=== PATIENT | female | born 1970 | race Two or more races ===

== ENCOUNTER 2018-12-01 10:57 | Emergency (ER) | payer OTHER ==
[~2018-12-01] VITALS: Ht 152.4 cm; Wt 66.2 kg
--- NOTE | 2018-12-01 11:00 | NUR ---
PT BIBRA FROM WORK C/O DIZZINESS, TINGGLY SENSATION TO LIPS FINGERS AND TOES X 5 DAYS AND WORST SINCE LAST NIGHT. NO NOTED FACIAL DROOPING, SLURRING AND WEAKNESS UPON INITIAL ASSESSMENT. 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 BG 127 BIOMETRIC SCREENER. GOWNED AND PLACED ON MONITOR. VSS. AWAITING MD GASTON.
--- NOTE | 2018-12-01 11:15 | NUR ---
DR RASHEED AT BEDSIDE FOR EVAL.
[2018-12-01] MEDS ORDERED: ONDANSETRON HCL/PF 4 MG/2 ML VIAL ONE (11:33)
[2018-12-01] MEDS: IV NS 0.9% 1,000 ML BAG IV ONE (11:35)
--- NOTE | 2018-12-01 11:36 | NUR ---
PT REALLY NAUSEATED. DR RASHEED MADE AWARE. VERBAL ORDER FOR ZOFRAN 4MG IVP GIVEN. CARRIED OUT.
[2018-12-01 11:41] LABS: BASOPHILS % (AUTO) 0.2 % (0.0-2.0); CALCIUM, SERUM 8.8 mg/dL (8.5-10.1); CARBON DIOXIDE 28 mmol/L (21-32); CHLORIDE 107 mmol/L (98-107); CREATININE 0.6 mg/dL (0.6-1.3); EOSINOPHILS % (AUTO) 0.5 % (0.0-6.0); GLUCOSE 98 mg/dL (74-106); HEMATOCRIT 42 % (33-45); HEMOGLOBIN 14.2 g/dL (11.5-14.8); LYMPHOCYTES # (AUTO) 1.3 /CMM (0.8-4.8); MEAN CORPUSCULAR HGB CONC 34 g/dl (31.0-36.0); MEAN CORPUSCULAR VOLUME 90 fL (82-100); MONOCYTES # (AUTO) 0.4 /CMM (0.1-1.30); NEUTROPHILS # (AUTO) 5.1 /CMM (1.8-8.9); NEUTROPHILS % (AUTO) 74.3 % (43.0-81.0); PLATELET COUNT (AUTO) 212 /CMM (150-450); POTASSIUM 3.9 mmol/L (3.5-5.1); RED BLOOD CELL COUNT(AUTO) 4.67 MIL/uL (4.0-5.2); SODIUM SERUM 144 mmol/L (136-145); UREA NITROGEN, BLOOD 13 mg/dL (7-18); WHITE BLOOD COUNT (AUTO) 6.9 K/uL (4.3-11.0)
[2018-12-01 11:47] LABS: ALANINE AMINOTRANSFERASE 26 U/L (12-78); ALBUMIN 3.7 g/dL (3.4-5.0); ALKALINE PHOSPHATASE 74 U/L (46-116); ASPARTATE AMINOTRANSFERASE 17 U/L (15-37); BILIRUBIN,DIRECT 0.2 mg/dL (0.0-0.2); BILIRUBIN,TOTAL 1.1 mg/dL (0.2-1.0); TOTAL PROTEIN, SERUM 7.2 g/dL (6.4-8.2)
[2018-12-01] MEDS ORDERED: IOHEXOL-350 100 ML VIAL IV ONE (11:55)
[2018-12-01] MEDS ORDERED: CT SWABBABLE VALVE TRANS SET 1 EA INFUS.SET MC ONE (11:55)
[2018-12-01] MEDS ORDERED: IV NS 0.9% 250 ML IV ONE (11:55)
--- NOTE | 2018-12-01 12:08 | NUR ---
PT TO RADIOLOGY FOR HEAD, BRAIN AND CAROTID CT SCAN VIA [facility].
--- NOTE | 2018-12-01 13:19 | NUR ---
Patient discharged to home in stable condition. Written and verbal after care instructions given. Patient verbalizes understanding of instruction.IV removed. Catheter intact and site benign. Pressure and 4x4 applied to site. No bleeding noted.
[2018-12-01 13:20] VITALS: BP 144/87
== END 2018-12-01 13:21 | disposition home or self-care (01) ==
LOC: ER 10:59
DX: R42 Dizziness and giddiness (principal); R51 Headache; I67.1 Cerebral aneurysm, nonruptured
CPT/HCPCS: 36415; 70496; 70498; 71045; 80048; 80076; 84484; 85025; 93005; 96360; 99284; J2405; J7030; J7050; Q9967